=== PATIENT | female | born 1990 | race African-American/Black ===

== ENCOUNTER 2023-10-18 12:24 | Outpatient (CLI) | payer OTHER, SELFPAY ==
[2023-10-18 12:52] VITALS: BMI 21.8
[2023-10-18 13:07] VITALS: BP 119/66; PULSE 71; RESP 18; TEMP 36.3; O2SAT 100
[2023-10-18 13:20] LABS: Urine Pregnancy, HCG Qual. Negative (Negative)
[2023-10-18 13:50] LABS: Chloride 110 mmol/L (98-107); Sodium 139 mmol/L (136-145)
[2023-10-18 13:53] LABS: Blood Urea Nitrogen 12 mg/dl (7-17); Calcium 9.6 mg/dl (8.4-10.2); Carbon Dioxide 22 mmol/L (22.0-30.0); Creatinine Clearance Estimated 105 mL/min (50-200); Estimated Glomerular Filt Rate 95 ml/min (>60); GFR (African American) 115 ML/MIN (>60); Glucose 108 mg/dl (74-100)
[2023-10-18 14:05] VITALS: BP 144/96; PULSE 62; RESP 18; O2SAT 100
[2023-10-18 14:08] VITALS: BP 123/95; PULSE 55; RESP 18; O2SAT 100
[2023-10-18 14:12] VITALS: BP 116/78; PULSE 58; RESP 16; O2SAT 98
[2023-10-18 14:15] VITALS: BP 115/75; PULSE 57; RESP 18; O2SAT 98
[2023-10-18] MEDS: SODIUM CHLORIDE 0.9% 10ML SYR (RAD ONLY) 10 ML IV (14:29)
[2023-10-18] MEDS: 0.9 % SODIUM CHLORIDE 50 ML VIAL IV (14:29)
[2023-10-18 14:30] VITALS: BP 161/91; PULSE 68; RESP 16; O2SAT 100
[2023-10-18] MEDS: IOPAMIDOL-370 (76%);100ML BOTTLE 85 ML IV (14:30)
== END 2023-10-18 14:30 | disposition home or self-care (01) ==
PROVIDERS: PCP Registered Nurse; Visit Provider Registered Nurse
DX: I25.119 Atherosclerotic heart disease of native coronary artery with unspecified angina pectoris (principal); I11.9 Hypertensive heart disease without heart failure; I34.1 Nonrheumatic mitral (valve) prolapse; I34.0 Nonrheumatic mitral (valve) insufficiency; R01.1 Cardiac murmur, unspecified; R94.31 Abnormal electrocardiogram [ECG] [EKG]
CPT/HCPCS: 75574; 80048; 81025; Q9967